=== PATIENT | female | born 1990 | race Caucasian/White ===

== ENCOUNTER 2016-05-24 13:12 | Observation (INO) | payer SELFPAY ==
[2016-05-24] MEDS ORDERED: SODIUM CHLORIDE 0.9% (FLUSH) 10 ML SYG IV PRN ×2 (13:39→17:19)
--- NOTE | 2016-05-24 13:39 | ED.PDOC ---
History of Present Illness - General Chief Complaint: Neuro Symptoms/Deficits Stated Complaint: R facial numbness/tingling Time Seen by Provider: 05/24/16 13:14 Source: patient Exam Limitations: no limitations Additional Information: PT STATES SHE BIT HER TONGUE 2 DAYS AGO. YESTERDAY SHE NOTICED SHE HAD R TONGUE NUMBNESS, TODAY SHE NOTICED R FACIAL DROOP. CAME TO ED FOR EVALUATION. - History of Present Illness Timing/Duration: other - YESTERDAY Severity: mild, moderate Improving Factors: nothing Worsening Factors: nothing Associated Symptoms: headaches - R OCCIPITAL Allergies/Adverse Reactions: Allergies NO KNOWN ALLERGY Allergy (Verified 05/24/16 13:21) Home Medications: Ambulatory Orders NK [NK] 05/24/16 Review of Systems - Review of Systems Constitutional: Denies: chills, fever EENTM: Denies: eye pain, blurred vision, double vision, nose congestion, throat swelling Respiratory: Denies: cough, short of breath Cardiology: Denies: chest pain, edema, palpitations Gastrointestinal/Abdominal: Denies: abdominal pain, nausea, vomiting Genitourinary: States: no symptoms reported Musculoskeletal: Denies: back pain, neck pain Skin: States: no symptoms reported Neurological: States: anxiety, headache, numbness. Denies: weakness Endocrine: States: no symptoms reported Past Medical History (General) - Patient Medical History Hx Stroke: No Hx Congestive Heart Failure: No Hx Diabetes: No Hx MRSA: No - Vaccination History Hx Influenza Vaccination: No Hx Pneumococcal Vaccination: No - Social History Hx Tobacco Use: Yes - Quit 01/2016 - Female History Patient is a Female of Child Bearing Age (10 -59 yrs old): Yes Patient : No Family Medical History - Family History Mother Family History: No Known Living Status: Still Living Physical Exam - Physical Exam General Appearance: Alert, Comfortable, No apparent distress Eye Exam: bilateral normal Ears, Nose, Throat: hearing grossly normal, normal ENT inspection Neck: non-tender, full range of motion Respiratory: lungs clear, normal breath sounds Cardiovascular/Chest: regular rate, rhythm, no murmur Gastrointestinal/Abdominal: normal bowel sounds, non tender, no organomegaly Back Exam: normal inspection, no CVA tenderness Extremity: normal range of motion, non-tender Neurologic: alert, normal mood/affect, abnormal beauty sales advisor II-XII - R CN VII PALSY, RUE ST 4+/5, 5/5 OTHER EXT. Skin Exam: normal color Lymphatic: no adenopathy Progress - Progress Progress: 05/24/16 16:28 NEUROLOGY HAS EVALUATED PT. AGREES MAY HAVE SOME SUBJECTIVE RUE WEAKNESS AND WITH THE NECK PAIN, REQUESTED PT BE ADMITTED FOR OBSERVATION TX FERRARO'S PALSY AND GET MRI/MRA TOMORROW. - EKG/XRAY/CT EKG: Sinus - RATE 64, NL AXIS, NL INTERVALS, , no ST T wave changes - NAIP, NO OLD Departure - Departure Clinical Impression: Ferraro palsy Time of Disposition: 16:27 - D/W DERECK, WILL ADMIT Disposition: Discharge to Home or Self Care Condition: Good Departure Forms: ED Discharge - Pt. Copy, Patient Portal Self Enrollment Home Medications: Ambulatory Orders NK [NK] 05/24/16
--- NOTE | 2016-05-24 14:03 | CT ---
EXAM DESCRIPTION: CT HEAD WITHOUT IV CONTRAST CLINICAL HISTORY: FACIAL DROOP COMPARISON: None. TECHNIQUE: Noncontrast transaxial CT images of the head are obtained from base to vertex. CT scan was done according to ALARA (As Low as Reasonably Achievable). FINDINGS: The midline structures are not displaced. The sulci are age appropriate. The lateral, third, and fourth ventricles are normal in size, shape, and anatomic positioning. There is no evidence of mass, mass effect, hydrocephalus, or acute intracranial hemorrhage. No abnormal extra axial fluid collections are seen. Normal roman-white differentiation is seen. The visualized bone windows show no depressed skull fracture or significant abnormality. There is an irregular appearance to the skull areas of focal thinning in the vertex and posterior region which may indicate sequela of remote prior trauma or postsurgical changes. The visualized paranasal sinuses and mastoid air cells are clear. IMPRESSION: 1. No acute abnormality is seen on noncontrast CT of the head. Electronically signed by: Daniel Quesada MD 05/24/2016 14:01
--- NOTE | 2016-05-24 14:04 | RAD ---
EXAM DESCRIPTION: XR CHEST 1 VIEW CLINICAL HISTORY: FACIAL DROOP COMPARISON: None. IMPRESSION: Single AP portable upright view of the chest shows cardiac silhouette and pulmonary vasculature to be within normal limits. Lungs are normally aerated and clear. No obvious pleural effusion or pneumothorax is seen. Electronically signed by: Daniel Quesada MD 05/24/2016 14:02
--- NOTE | 2016-05-24 17:03 | HP ---
SUPERVISING PHYSICIAN: Nolberto Juan M.D. CHIEF COMPLAINT: Right facial numbness and tingling. HISTORY OF PRESENT ILLNESS: Ms. Arceo is a 26 year-old female patient that presented to the Emergency Department with 2 days of right facial numbness and tingling. She notes that she has not been able to have any taste on the right side of her mouth since yesterday and this morning noted that she had right facial drooping. She has also had an occipital headache for the last 2 days. Today, she reported some right arm weakness but does not have any numbness on the right side. She denied any visual changes. Evaluation in the E. R. consisted of a CT of the head initially without contrast and per radiology interpretation there was no acute abnormality seen on the noncontrast CT of the head. A teleneurology consultation was also obtained with [facility] by Dr. Byers in the Emergency Department. Findings per Dr. Byers indicated possible Quarles's palsy with right arm weakness subjectively along with some neck pain. Recommendations were to admit the patient in observation and to obtain and CT of the head, CT of the neck and MRI of the brain without contrast to further rule out any dissection and/or strokes. Further recommendations were to start the patient on an 81 mg aspirin daily and start conservative management of the Quarles's palsy. The patient is placed in Observation tonight and started on treatment with diagnosis of Quarles's palsy pending CT of the head, neck and MRI of the brain in the morning. The patient was admitted to the Medical/Surgical floor in stable condition. PAST MEDICAL HISTORY: Denies any significant past medical history. PAST SURGICAL HISTORY: Denies any significant past surgical history. CURRENT MEDICATIONS: No chronic medications listed. ALLERGIES: NO KNOWN DRUG ALLERGIES. FAMILY HISTORY: Unremarkable. She lives with her grandparents and does not know anything about her immediate father and mother. SOCIAL HISTORY: The patient recently quit smoking. She is a nondrinker. She denies using illicit drugs. She is engaged. 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 REVIEW OF SYSTEMS: CONSTITUTIONAL: She denies any fever or chills, unintentional weight loss. HEENT: Denies any ear pain, eye pain, blurred vision , double vision, nasal congestion or throat swelling. RESPIRATORY: Denies any cough or shortness of breath. CARDIOVASCULAR: Denies any chest pains, edema, palpitations or syncopal episodes. GASTROINTESTINAL: Denies abdominal pains, nausea or vomiting, diarrhea or constipation. GENITOURINARY: Denies any dysuria , discharges or other urinary symptoms. MUSCULOSKELETAL: Denies any neck or back pain. NEUROLOGIC: Notes that she has a high anxiety headache and numbness as noted in her History of Present Illness on the right side of her tongue, but denies any significant weakness. PHYSICAL EXAMINATION: VITAL SIGNS: Temperature 98.9, pulse 52, blood pressure 114/62, respirations 18 , O2 sat 99% on room air. Admission weight 92.8 kg. GENERAL: The patient is comfortable, appears well nourished, well hydrated. She is in no acute distress. HEENT: Tympanic membranes are clear bilaterally. Oropharynx is pink and moist without any lesions. There is no jugular venous distention. CHEST: Lungs are clear to auscultation bilaterally without any rhonchi, wheezing or rales. CARDIOVASCULAR: Regular rate and rhythm without appreciable murmurs, gallops, or rubs. ABDOMEN: Soft, non-tender. Positive bowel sounds. EXTREMITIES: No clubbing, cyanosis or edema. NEUROLOGIC: She is alert and oriented times three with normal speech pattern. No aphasia. No dysarthria. Cranial nerves II-XII indicate a facial droop with cranial nerve VII palsy with peripheral right facial droop. There is no motor drift noted. Sensory: She reports normal sensation but decreased sensation to the face. She has a normal [id number]-mviy and normal heel to ford with no ataxia noted. Extraocular movements are within normal limits with no nystagmus. LABORATORY: CBC is within normal limits with a white count of 7.2. Differential shows no shift. Coagulation studies show a normal PT and PTT. Chemistries show normal electrolytes with potassium 3.6, BUN 14, creatinine 0.52 , glucose 100. Liver functions are all within normal limits. Serum HCG qualitative was negative. EKG showed sinus rhythm with a rate of [address]-T wave changes. RADIOLOGY: Chest x-ray initially in the Emergency Department per radiology interpretation shows no obvious pleural effusions or pneumothorax seen. Lungs are normally aerated and clear with normal cardiac silhouette and pulmonary vasculature to be within normal limits. CT of the head without contrast pre radiology interpretation prior to admission, impressions indicate no acute abnormality seen on the noncontrast CT of the head. ASSESSMENT: 1. 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 PLAN: The patient will be admitted as per Neurology consultation recommendations and have a CTA of the head and neck in the morning as well as MRI of the brain to further rule out any dissection and/or strokes. She will be started on aspirin 81 mg daily and conservative management of Quarles's palsy with Prednisone 60 mg daily and Acyclovir 400 mg 5 times daily. Ocular precautions will be utilized to prevent and corneal abrasions. Anticipate length of stay to be 1 to 2 days pending final results of further studies in the morning. Until then, will continue to monitor the patient closely and treat appropriately. Once the patient is ultimately discharged, she will need close followup with a primary care provider. At this time, recommendations are to seek medical home through [facility]. #[id number] [facility]
[2016-05-24] MEDS ORDERED: ACETAMINOPHEN 325 MG TAB PO PRN (17:19)
[2016-05-24] MEDS ORDERED: IV SET AND CAP CHANGE INJ INJ SCH (17:30)
[2016-05-24] MEDS: ACYCLOVIR 200 MG CAP PO SCH ×2 (17:39→22:12)
[2016-05-24] MEDS: predniSONE 20 MG TAB PO SCH (17:41)
[2016-05-25 05:42] VITALS: O2SAT 100
[2016-05-25] MEDS: ACYCLOVIR 200 MG CAP PO SCH ×2 (06:19→09:29)
--- NOTE | 2016-05-25 08:10 | CT ---
EXAM DESCRIPTION: CT NECK ANGIOGRAPHY WITH IV CONTRAST; CT HEAD ANGIOGRAPHY WITH IV CONTRAST CLINICAL HISTORY: FF , [place] Palsy, r/o dissection and/or Stroke COMPARISON: None TECHNIQUE: CTA of the head and neck was performed with IV contrast including 3D reformatted images. FINDINGS: All diameter measurements and percent stenosis values in this report are based on NASCET criteria. CTA neck: The aortic arch, innominate and visualized portions of the bilateral subclavian arteries are unremarkable. There is no left or right-sided carotid artery stenosis. A dominant left vertebral artery is noted, but there is no vertebral artery dissection period the lung apices are unremarkable. There is no thyroid nodule or cervical adenopathy period the parotid and submandibular glands are bilaterally symmetric and otherwise unremarkable period CTA head: There is no basilar artery aneurysm. Incidentally noted is persistent origin of the right posterior cerebral artery, a normal anatomic variant. The left posterior cerebral artery is unremarkable. Petrous, precavernous and cavernous segments of the internal carotid arteries are of normal caliber bilaterally. Visualized portions of the anterior and middle cerebral arteries are normal. There is no anterior communicating artery aneurysm. The posterior communicating arteries are unremarkable. There is mild mucoperiosteal thickening in the left maxillary sinus period the mastoid air cells are clear. IMPRESSION: Negative exam. No apparent vascular abnormality in the head or neck to explain patient's symptoms. Electronically signed by: Mike Nicole DO 05/25/2016 08:08
[2016-05-25] MEDS ORDERED: SODIUM CHLORIDE 0.9% (FLUSH) 10 ML SYG IV SCH (09:00)
[2016-05-25] MEDS ORDERED: ASPIRIN (CHEWABLE) 81 MG TAB PO SCH (09:00)
[2016-05-25] MEDS: predniSONE 20 MG TAB PO SCH (09:29)
--- NOTE | 2016-05-25 10:51 | MRI ---
Study: MRI of the Brain. Indication: [place] Palsy, r/o dissection and/or Stroke Technique: Multiplanar, multi sequence MRI of the brain obtained without intravenous contrast. Comparison: CT head May 24, 2016. Findings: No MRI evidence of acute ischemia, acute hemorrhage, mass, mass effect, midline shift, or extra-axial fluid collection. Ventricles are normal in configuration without hydrocephalus. Brain parenchyma demonstrates a normal appearance for patient's age. Midline structures are intact. Paranasal sinuses are adequately aerated. Mastoid air cells are adequately aerated. Osseous structures and soft tissues demonstrate normal signal characteristics. Impression: 1. No MRI evidence of acute intracranial abnormality. Electronically signed by: Bradford Brian MD 05/25/2016 10:50
[2016-05-25] MEDS ORDERED: CARBOXYMETHYLCELLULOSE 0.5% 0.4 ML UD RIGHT_EYE PRN (11:01)
[2016-05-25 12:51] VITALS: BP 108/71; TEMP 97.8
--- NOTE | 2016-05-30 13:47 | DS ---
SUPERVISING PHYSICIAN: Nolberto Juan MD DISCHARGE DIAGNOSIS: 1. Right arm weakness with cranial nerve VII palsy, most likely Quarles's palsy, requiring further evaluation in outpatient setting with MRI and CTA of the brain and neck, showing no significant findings per radiology interpretation for any acute dissections or strokes. HISTORY OF PRESENT ILLNESS: Ms. Arceo is a 26-year-old, , female patient that presented to the Emergency Department with 2 days of right facial numbness and tingling. She notes that she has not been able to have any taste on the right side of her mouth since prior to admission and the morning of admission noted that she had right facial drooping. She has also had an occipital headache for the last 2 days. On admission, she reported some right arm weakness, but did not have any numbness on the right side. She denied any visual changes. Evaluation in the Emergency Room consisted of a CT of the head initially without contrast and per radiology interpretation there was no acute abnormality seen on the noncontrast CT of the head. A tele-neurology consultation was also obtained with [facility] by Dr. Byers in the Emergency Department. Findings per Dr. Byers indicated possible Quarles's palsy with right arm weakness subjectively along with some neck pain. Recommendations were to admit the patient in observation and to obtain and CT of the head, CT of the neck and MRI of the brain without contrast to further rule out any dissection and/or strokes. Further recommendations were to start the patient on an 81 mg aspirin daily and start conservative management of the Quarles's palsy. The patient was placed in observation tonight and started on treatment with diagnosis of Quarles's palsy pending CT of the head, neck and MRI of the brain in the morning. The patient was admitted to the Medical/Surgical floor in stable condition. LABORATORY: CBC was within normal limits with a white count of 7.2. Differential was within normal limits. Coagulation studies show a normal PT 11.2, PTT 33.2. Chemistries show normal electrolytes with potassium 3.6, BUN 14 , creatinine 0.5, glucose 98, calcium 9.1. Liver functions all within normal limits. Serum HCG qualitative was negative. Triglycerides 80, cholesterol 176 , LDL 130, HDL 44. RADIOLOGY: Chest x-ray initially in the Emergency Department prior to admission per radiology interpretation showed no obvious pleural effusions or pneumothorax seen. CT of the head without contrast pre radiology interpretation prior to admission, showed no acute abnormality seen on the noncontrast CT of the head. EKG showed sinus rhythm. Prior to discharge, she had MRI of the brain and per radiology interpretation showed no MRI evidence of acute intracranial abnormalities. She also had a head CTA and neck CTA and per radiology interpretation showed negative exam, no apparent vascular abnormalities in the head or neck to explain the patient's symptoms. HOSPITAL COURSE: Ms. Arceo was admitted from the Emergency Department as noted in history of present illness with concern for right sided facial nerve damage with possible diagnosis of Quarles's palsy. She was started on prednisone p.o. 60 mg daily as well as acyclovir 400 mg 5 times a day. She was provided Refresh Plus eyedrops for right eye protection and started on a daily aspirin. She remained stable. She showed no worsening of her symptoms. She continued to have facial numbness as well as the facial drooping which remained essentially stable. She did have a headache on admission which was treated with Tylenol and she had good relief after staring Tylenol and prednisone. It was felt that the patient at time of discharge was stable and based off the radiographic findings, there were no concerns for acute intracranial abnormalities. She remained stable with blood pressure at time of discharge of 108/71, pulse 54, respirations 20, saturation 100% on room air. She remained afebrile with T-max of 98.8. PLAN: The patient was discharged on 05/25/16 to have close clinical followup with [facility] to establish a primary care provider on at 10:40 AM scheduled to see Theresa Liu NP. She was instructed that she would need close followup with [facility] as well as neurology consultation that could be arranged through the clinic. She was to resume all previous medications as directed and take new prescriptions as instructed. She was to use her eyedrops as instructed to help prevent any eye irritation or abrasions. She was to avoid using eye patch and tape the eyelid closed after applying lubricant drops before going to bed. She was to followup with the eye doctor to help with management dry eye. She was to return to the hospital if no improvement or worsening of her symptoms. She was discharged in stable condition with new prescriptions to include: 1. Prednisone 10 mg tablets, #28, to take 50 mg times 3 days, 40 mg times 1 day , 30 mg times 1 day, 20 mg times 1 day, 10 mg times 1 day. 2. Refresh Plus 1 drop, right eye, 4 times a day as needed, #1 bottle. 3. Acyclovir 400 mg 5 times a day, #45 200 mg tablets prescribed. She was discharged in stable condition. #[id number] [facility]
== END 2016-05-25 12:55 | disposition home or self-care (01) | DRG 74 ==
LOC: ER 13:12 → INTOOBSV 17:01 → MS 17:01
PROVIDERS: ADMIT Nurse Practitioner Family; ATTEND Nurse Practitioner Family
DX: G52.9 Cranial nerve disorder, unspecified (principal); M62.81 Muscle weakness (generalized); M54.2 Cervicalgia; R20.0 Anesthesia of skin; R20.2 Paresthesia of skin; R43.9 Unspecified disturbances of smell and taste; R51 Headache; R29.810 Facial weakness; Z87.891 Personal history of nicotine dependence

== ENCOUNTER 2016-09-18 11:39 | Emergency (ER) | payer SELFPAY ==
[2016-09-18 11:49] VITALS: BP 115/73; TEMP 98.3; O2SAT 98
--- NOTE | 2016-09-18 11:58 | ED.PDOC ---
History of Present Illness - General Chief Complaint: Lower Extremity Injury Stated Complaint: right ankle pain Time Seen by Provider: 09/18/16 11:43 Source: patient, RN notes reviewed, Vital Signs reviewed Exam Limitations: no limitations - History of Present Illness Initial Comments: Patient reports that yesterday she fell and twisted her ankle. She is having pain and swelling of her whole ankle and mid foot. No numbness or tingling. Occurred: yesterday Pain - Lower Extremity: moderate: Right Ankle, Right Foot Method of Injury: fell Improving Factors: rest Worsening Factors: movement Allergies/Adverse Reactions: Allergies NO KNOWN ALLERGY Allergy (Verified 05/24/16 13:21) Home Medications: Ambulatory Orders NK [NK] 09/18/16 Review of Systems - Review of Systems Constitutional: States: no symptoms reported Musculoskeletal: States: see HPI, joint pain - Right ankle and foot, joint swelling - right ankle and foot Skin: States: no symptoms reported Neurological: States: no symptoms reported. Denies: numbness, paresthesia, tingling, weakness All other Systems: No Change from Baseline Past Medical History (General) - Patient Medical History Hx Stroke: No Hx Congestive Heart Failure: No Hx Diabetes: No Hx MRSA: No - Vaccination History Hx Influenza Vaccination: No Hx Pneumococcal Vaccination: No - Social History Hx Tobacco Use: Yes - Female History Patient is a Female of Child Bearing Age (10 -59 yrs old): Yes Patient : No Family Medical History - Family History Mother Family History: No Known Living Status: Still Living Physical Exam - Physical Exam General Appearance: Alert, Comfortable, No apparent distress, Well Developed, Well Groomed, Well Hydrated, Well Nourished Cardiovascular/Respiratory: normal peripheral pulses Knee: normal inspection, non-tender, no evidence of injury, normal ROM Ankle: bone tenderness, limited ROM, pain, soft tissue tenderness, swelling - right ankle Foot: bone tenderness, limited ROM, soft tissue tenderness, swelling - right foot Neuro/Tendon: normal sensation, normal motor functions, normal tendon functions Mental Status: alert, oriented x 3 Skin: normal color, warm/dry Progress - EKG/XRAY/CT XRAY: R Foot: soft tissue swelling, no fracture - Right: soft tissue swelling, no fracture. Procedures - Splinting Right Ankle Pre-Made Type: Air cast Splint: Air cast Pre-Proc Neuro Vasc Exam: normal Post-Proc Neuro Vasc Exam: normal Departure - Departure Clinical Impression: Sprain of right ankle or foot Time of Disposition: 12:18 Disposition: Discharge to Home or Self Care Condition: Good Departure Forms: ED Discharge - Pt. Copy, Patient Portal Self Enrollment Instructions: DI for Ankle Sprain Diet: resume usual diet Activity: increase activity as tolerated Referrals: Anna Gotti FNP [Primary Care Provider] - 1-2 Weeks Home Medications: Ambulatory Orders NK [NK] 09/18/16
--- NOTE | 2016-09-18 12:12 | RAD ---
EXAM: UNILATERAL FOOT 3 VIEWS DATE: 09/18/2016 INDICATION: Fall COMPARISON: None available. TECHNIQUE: Three views of the right foot are interpreted without comparison. FINDINGS: No fracture, dislocation or other acute bony abnormality is identified. Joint spaces and bone mineral density are preserved. Mild soft tissue swelling over the dorsum of foot. IMPRESSION: No acute osseous abnormality. Mild dorsal foot soft tissue swelling. Electronically signed by: Yesenia Valdez MD 09/18/2016 12:12 PM CDT
--- NOTE | 2016-09-18 12:17 | RAD ---
EXAM: RIGHT ANKLE 3 VIEWS DATE: 09/18/2016 INDICATION: MAIN. COMPARISON: Same day foot x-ray. TECHNIQUE: AP, lateral and oblique radiographs of the right ankle were performed. FINDINGS: No fracture, dislocation or other acute bony abnormality is identified. The ankle mortise is congruent. Soft tissue swelling over the lateral malleoli. IMPRESSION: No acute fracture. Soft tissue swelling over the lateral ankle. Electronically signed by: Yesenia Valdez MD 09/18/2016 12:17 PM CDT
== END 2016-09-18 12:32 | disposition home or self-care (01) ==
LOC: ER 11:39
DX: S93.401A Sprain of unspecified ligament of right ankle, initial encounter (principal); W19.XXXA Unspecified fall, initial encounter

== ENCOUNTER 2016-12-16 16:51 | Emergency (ER) | payer SELFPAY ==
[2016-12-16] MEDS ORDERED: AZITHROMYCIN 250 MG TAB PO ONE (18:19)
[2016-12-16] MEDS ORDERED: cefTRIAXone SODIUM 1 GM VIAL IM ONE (18:19)
--- NOTE | 2016-12-16 18:22 | ED.PDOC ---
History of Present Illness - General Chief Complaint: ENT Problem Stated Complaint: Cough, swollen, sore throat Time Seen by Provider: 12/16/16 16:59 Source: patient Exam Limitations: no limitations - History of Present Illness Initial Comments: the patient is a 26-year-old female presenting to the emergency room secondary to sore throat that has developed over the last 3 days. She has had a significant cough for the last week. She feels like she had a low-grade fever last night. No real shortness of breath. No history of asthma. No sinus pain or congestion. No earache. No chest pain. Timing/Duration: 1 week Severity: moderate Improving Factors: nothing Worsening Factors: nothing Associated Symptoms: denies symptoms Allergies/Adverse Reactions: Allergies NO KNOWN ALLERGY Allergy (Verified 05/24/16 13:21) Home Medications: Ambulatory Orders Azithromycin 250 mg PO DAILY #5 tab 12/16/16 Sertraline HCl [Zoloft] 25 mg PO DAILY 12/16/16 Trazodone HCl 25 mg PO DAILY 12/16/16 Review of Systems - Review of Systems Constitutional: States: fever, malaise EENTM: States: throat pain Respiratory: States: cough. Denies: short of breath, wheezing Cardiology: States: no symptoms reported Gastrointestinal/Abdominal: States: no symptoms reported Genitourinary: States: no symptoms reported Musculoskeletal: States: no symptoms reported Skin: States: no symptoms reported Neurological: States: no symptoms reported Endocrine: States: no symptoms reported Hematologic/Lymphatic: States: no symptoms reported All other Systems: No Change from Baseline Past Medical History (General) - Patient Medical History Hx Stroke: No Hx Congestive Heart Failure: No Hx Diabetes: No Hx MRSA: No - Vaccination History Hx Influenza Vaccination: No Hx Pneumococcal Vaccination: No - Social History Hx Tobacco Use: Yes - Female History Patient : No Family Medical History - Family History Mother Family History: No Known Living Status: Still Living Physical Exam - Physical Exam General Appearance: Alert, Comfortable, No apparent distress Eye Exam: bilateral normal Ears, Nose, Throat: hearing grossly normal, pharyngeal erythema Neck: full range of motion, supple Respiratory: chest non-tender, lungs clear, normal breath sounds, no respiratory distress, no accessory muscle use Cardiovascular/Chest: normal peripheral pulses, regular rate, rhythm, no edema Peripheral Pulses: radial,right: 2+, radial,left: 2+, dorsalis pedis,right: 2+, dorsalis pedis,left: 2+ Gastrointestinal/Abdominal: non tender, soft Back Exam: normal inspection Extremity: normal range of motion, non-tender, normal inspection, no pedal edema , normal capillary refill Neurologic: slot attendant II-XII nml as tested, no motor/sensory deficits, alert, normal mood/affect, oriented x 3 Skin Exam: normal color Progress - Progress Progress: 12/16/16 18:21 the patient is a 26-year-old female presenting with what appears to be a mild pharyngitis associated with a mild bronchitis. The patient will be covered with azithromycin for the next 5 days and has been given a dose of Rocephin here. She tested negative for streptococcus. She needs to keep well- hydrated. Motrin and Tylenol can be used for discomfort. ER warnings are given for any significant worsening. Departure - Departure Clinical Impression: Pharyngitis Qualifiers: Pharyngitis/tonsillitis etiology: unspecified etiology Qualified Code(s): J02.9 - Acute pharyngitis, unspecified Disposition: Discharge to Home or Self Care Condition: Fair Departure Forms: ED Discharge - Pt. Copy, Patient Portal Self Enrollment Instructions: Sore Throat Diet: regular diet Activity: increase activity as tolerated Referrals: Anna Gotti FNP [Primary Care Provider] - 1-2 Weeks Prescriptions: Azithromycin 250 mg PO DAILY #5 tab Home Medications: Ambulatory Orders Azithromycin 250 mg PO DAILY #5 tab 12/16/16 Sertraline HCl [Zoloft] 25 mg PO DAILY 12/16/16 Trazodone HCl 25 mg PO DAILY 12/16/16 Additional Instructions: the patient is a 26-year-old female presenting with what appears to be a mild pharyngitis associated with a mild bronchitis. The patient will be covered with azithromycin for the next 5 days and has been given a dose of Rocephin here. She tested negative for streptococcus. She needs to keep well- hydrated. Motrin and Tylenol can be used for discomfort. ER warnings are given for any significant worsening.
[2016-12-16] MEDS ORDERED: LIDOCAINE 1% 10 ML VIAL INJ ONE (18:32)
[2016-12-16 19:07] VITALS: BP 113/70; TEMP 98.3; O2SAT 94
== END 2016-12-16 19:30 | disposition home or self-care (01) ==
LOC: ER 16:51
DX: J02.9 Acute pharyngitis, unspecified (principal); Z87.891 Personal history of nicotine dependence
CPT/HCPCS: 87070; 87651; J0696; Q0144

== ENCOUNTER 2017-08-08 18:13 | Emergency (ER) | payer SELFPAY ==
[2017-08-08 18:24] VITALS: BP 144/68; TEMP 96.8; O2SAT 100
[2017-08-08] MEDS ORDERED: predniSONE 20 MG TAB PO ONE (18:40)
[2017-08-08] MEDS ORDERED: ACYCLOVIR 200 MG CAP PO ONE (18:41)
[2017-08-08] MEDS ORDERED: KETOROLAC TROMETHAMINE INJ 30 MG/ML VIAL IM ONE (18:42)
--- NOTE | 2017-08-08 18:44 | ED.PDOC ---
History of Present Illness - General Chief Complaint: Headache Stated Complaint: headache Time Seen by Provider: 08/08/17 18:26 Source: patient Exam Limitations: no limitations - History of Present Illness Initial Comments: the patient is a 27-year-old female presenting to the emergency room secondary to right sided facial tingling along with what she feels is a mild right sided facial muscle weakness as well as a right-sided scalp headache. Her taste is normal. Her hearing is normal. No altered mental status. 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 No fever. No altered mental status. Symptoms have been present and mild for the last 4 days. Objectively the patient has a very mild reduced ability to smile on the right side. Otherwise I see no evidence of any facial asymmetry and no difficulty with closing the eye. No speech difficulty. Severity: moderate Improving Factors: nothing Worsening Factors: nothing Associated Symptoms: headaches Allergies/Adverse Reactions: Allergies NO KNOWN ALLERGY Allergy (Verified 05/24/16 13:21) Home Medications: Ambulatory Orders Acyclovir [Zovirax] 800 mg PO Q4HR #25 tab 08/08/17 predniSONE [Prednisone] 40 mg PO DAILY #20 tab 08/08/17 Review of Systems - Review of Systems Constitutional: States: malaise EENTM: States: no symptoms reported Respiratory: States: no symptoms reported Cardiology: States: no symptoms reported Gastrointestinal/Abdominal: States: no symptoms reported Genitourinary: States: no symptoms reported Musculoskeletal: States: no symptoms reported Skin: States: no symptoms reported Neurological: States: headache Endocrine: States: no symptoms reported All other Systems: No Change from Baseline Past Medical History (General) - Patient Medical History Hx Stroke: No Hx Cardiac Disorders: No Hx Congestive Heart Failure: No Hx Diabetes: No Hx Cancer: No Hx Hepatitis C: No Hx MRSA: No Surgical History: no surgical history - Vaccination History Hx Tetanus, Diphtheria Vaccination: Yes Hx Influenza Vaccination: No Hx Pneumococcal Vaccination: No - Social History Hx Tobacco Use: Yes Hx Chewing Tobacco Use: No Hx Alcohol Use: No Hx Substance Use: No Hx Substance Use Treatment: No Hx Depression: No Hx Physical Abuse: No Hx Emotional Abuse: No Hx Suspected Abuse: No - Female History Patient is a Female of Child Bearing Age (10 -59 yrs old): Yes Patient : No Family Medical History - Family History Mother Family History: No Known Living Status: Still Living Physical Exam - Physical Exam General Appearance: Alert, Comfortable, No apparent distress Eye Exam: bilateral normal Ears, Nose, Throat: hearing grossly normal, normal ENT inspection, normal pharynx Neck: full range of motion, supple Respiratory: no respiratory distress, no accessory muscle use Cardiovascular/Chest: normal peripheral pulses, no edema Peripheral Pulses: radial,right: 2+, radial,left: 2+ Rectal Exam: deferred Back Exam: no CVA tenderness Extremity: normal range of motion, non-tender, normal inspection, no pedal edema , normal capillary refill Neurologic: student affairs dean II-XII nml as tested, no motor/sensory deficits, alert, normal mood/affect, oriented x 3, other - see history of present illness otherwise Skin Exam: normal color Comments: Vital Signs - 24 hr 08/08/17 18:21 Temperature 96.8 F L Pulse Rate [ 70 Left Brachial] Respiratory 16 Rate Blood Pressure 144/68 [Left Arm] O2 Sat by Pulse 100 Oximetry Progress - Progress Progress: 08/08/17 18:45 the patient's 27-year-old female presenting with a right-sided headache and a feeling of a mild muscular weakness to the right side of her face consistent with the start of her previous Quarles's palsy exacerbations. The patient is given a dose of prednisone, acyclovir and Toradol here today. On physical exam her clinical manifestations are minimal at this point. The patient is going to be placed on 10 days of prednisone at 40 mg daily. She is going to be placed on acyclovir 800 mg 5 times a day for the next 5 days. She needs to increase her fluid intake. She needs to try to regularize her sleep patterns. ER warnings were given for any worsening. She should follow up with her primary care doctor towards the end of the week for reevaluation. She should photo document her facial muscle movements each day for comparison as well. Departure - Departure Clinical Impression: Quarles palsy Disposition: Discharge to Home or Self Care Condition: Fair Departure Forms: ED Discharge - Pt. Copy, Patient Portal Self Enrollment Instructions: DI for Quarles's Palsy Diet: regular diet Activity: increase activity as tolerated Referrals: Anna Gotti, NEURO OPHTHALMOLOGIST [Primary Care Provider] - 1-5 Days Prescriptions: Acyclovir [Zovirax] 800 mg PO Q4HR #25 tab predniSONE [Prednisone] 40 mg PO DAILY #20 tab Home Medications: Ambulatory Orders Acyclovir [Zovirax] 800 mg PO Q4HR #25 tab 08/08/17 predniSONE [Prednisone] 40 mg PO DAILY #20 tab 08/08/17 Additional Instructions: the patient's 27-year-old female presenting with a right-sided headache and a feeling of a mild muscular weakness to the right side of her face consistent with the start of her previous Quarles's palsy exacerbations. The patient is given a dose of prednisone, acyclovir and Toradol here today. On physical exam her clinical manifestations are minimal at this point. The patient is going to be placed on 10 days of prednisone at 40 mg daily. She is going to be placed on acyclovir 800 mg 5 times a day for the next 5 days. She needs to increase her fluid intake. She needs to try to regularize her sleep patterns. ER warnings were given for any worsening. She should follow up with her primary care doctor towards the end of the week for reevaluation. She should photo document her facial muscle movements each day for comparison as well.
== END 2017-08-08 19:03 | disposition home or self-care (01) ==
LOC: ER 18:13
DX: G51.0 Bell's palsy (principal); Z87.891 Personal history of nicotine dependence
CPT/HCPCS: J1885; J7512